=== PATIENT | male | born 1965 | race Caucasian/White ===

== ENCOUNTER → 2022-08-04 09:15 | Outpatient (BNVA) | payer OTHER, SELFPAY | PROVIDERS: Family Provider Family Medicine; PCP Family Medicine; Visit Provider Family Medicine | DX: Z12.5 Encounter for screening for malignant neoplasm of prostate (principal); Z13.220 Encounter for screening for lipoid disorders; Z13.1 Encounter for screening for diabetes mellitus; H35.52 Pigmentary retinal dystrophy; H35.30 Unspecified macular degeneration | CPT/HCPCS: 80053; 80061; 85025; G0103 ==

== ENCOUNTER → 2025-07-01 13:28 | Outpatient (BNVA) | payer OTHER, SELFPAY | PROVIDERS: Family Provider Family Medicine; PCP Family Medicine; Visit Provider Family Medicine | DX: Z13.1 Encounter for screening for diabetes mellitus (principal); Z13.220 Encounter for screening for lipoid disorders; Z13.6 Encounter for screening for cardiovascular disorders; Z12.5 Encounter for screening for malignant neoplasm of prostate; H91.93 Unspecified hearing loss, bilateral; R73.9 Hyperglycemia, unspecified | CPT/HCPCS: 80053; 80061; 83036; 83721; G0103 ==